=== PATIENT | female | born 1995 | race Caucasian/White ===

== ENCOUNTER 2017-01-23 07:40 | Emergency (ER) | payer OTHER ==
[2017-01-23 07:55] VITALS: BP 137/83; PULSE 70; RESP 16; TEMP 97.9; O2SAT 97
--- NOTE | 2017-01-23 08:01 | UCPHY ---
H & P Patient Type: New Chief Complaint Nursing Narrative: C/o L elbow pain and L hand abrasion after mechanical fall on ice this AM. Denies head trauma, cspine tenderness. Time Seen by Provider: 01/23/17 07:52 HPI/ROS: Chief complaint: Left arm pain HPI: 21-year-old woman symptom fell on the ice this morning landing on her left elbow and left hand. She has got tenderness over her elbow and an abrasion on the dorsum of her hand. She did not hit her head. No loss of conscious. She does initially had some decreased range of motion but is able to move it at this point. No does have a prior wrist fracture in that extremity years ago. ROS: 10 point Review of Systems is negative except as noted in the HPI. Past medical history: None Physical exam: Awake, alert, no acute distress Left arm: She has no shoulder tenderness, full range of motion without pain, she has no on olecranon tenderness but does have some tenderness just distal to the olecranon on the proximal ulna. There is no tenderness on the lateral or medial aspects of the bone. There is no deformity. She has no pain with stressing of the ulna. She has full range of motion of the elbow without pain. She has full supination and pronation. She has no distal humerus tenderness she has no radial head tenderness. She has no abrasion over her 4th MCP joint with no bony tenderness or deformity. Wrist has full range of motion without pain. There is otherwise no injuries. - Personal History LMP (Females 10-55): 1-7 Days Ago Current Tetanus Diphtheria and Acellular Pertussis (TDAP): Yes Tetanus Vaccine Date: within 10 years - Medical/Surgical History Hx Asthma: No Hx Chronic Respiratory Disease: No Hx Diabetes: No Hx Cardiac Disease: No Hx Renal Disease: No Hx Cirrhosis: No Hx Alcoholism: No Hx HIV/AIDS: No Hx Splenectomy or Spleen Trauma: No Other PMH: ADHD, tonsillectomy, jaw surgery, R foot surgery - Family History Significant Family History: No pertinent family hx - Social History Smoking Status: Never smoked Constitutional: Initial Vital Signs Temperature (C) 36.6 C 01/23/17 07:53 Heart Rate 70 01/23/17 07:53 Respiratory Rate 16 01/23/17 07:53 Blood Pressure 137/83 H 01/23/17 07:53 O2 Sat (%) 97 01/23/17 07:53 O2 Delivery Mode Room Air Allergies/Adverse Reactions: TOPICAL BENZOPEROXIDE Allergy (Intermediate, Uncoded 01/23/17 07:53) localized swelling Home Medications: Medication Instructions Recorded Adderall 10 MG (*) 01/23/17 Ortho-Cyclen 01/23/17 Medical Decision Making ED Course/Re-evaluation: 21-year-old with point tenderness over the left proximal ulna. She has no olecranon tenderness, full range of motion of pain. She has not have any pain with stressing of the bone at any point. I have discussed at length with the patient the possibility of a fracture which I think is low at this point. Given her range of motion and point tenderness. Symptoms are more consistent with a contusion. She would prefer to wait to get an x-ray if symptoms are not improved in several days. I think that this is appropriate. She has been encouraged to return for any concerns. Departure - Departure Disposition: Home, Routine, Self-Care Clinical Impression: Elbow contusion, Hand abrasion Condition: Good Instructions: Contusion in Adults (ED), Abrasion (ED) Additional Instructions: Follow up with primary care physician in 3-4 days if symptoms are not improving. If you continue to have pain or decreased mobility of her arm return for an x- ray. You may take ibuprofen alternating with acetaminophen for pain. Apply ice for every 15 minutes of every hour while awake. Referrals: JOSE ROTH [Primary Care Provider] - As per Instructions - PQRS PQRS Measurement: NA
== END 2017-01-23 08:15 | disposition home or self-care (01) ==
LOC: CED 07:40
DX: S50.02XA Contusion of left elbow, initial encounter (principal); S60.512A Abrasion of left hand, initial encounter; W00.0XXA Fall on same level due to ice and snow, initial encounter
CPT/HCPCS: 99202-PO; G0463-PO